=== PATIENT | female | born 1965 | race Caucasian/White ===

== ENCOUNTER 2017-12-12 21:32 | Emergency (ER) | payer OTHER ==
[2017-12-12 21:47] VITALS: BP 170/86
--- NOTE | 2017-12-12 23:31 | ED Physician Documentation ---
PD HPI TRUNK INJURY - Stated complaint Stated Complaint: RIB PX - Chief complaint Chief Complaint: General - History obtained from History obtained from: Patient - History of Present Illness Location: Right chest Type of injury: Crush (her gave a firm hug/squeeze to try to "Crack her back" and they felt a pop in right ribs.) Timing - onset: How many weeks ago (2) Timing - duration: Weeks (2) Timing - details: Abrupt onset, Still present Quality: Pain, Sharp Worsened by: Moving, Palpating, Other (deep breathing) Associated symtptoms: No: Weakness, Numbness Contributing factors: Other ( gave her hug/grabbed around her and tried to "crack her back" to help with stiffness. They felt a pop on right and she has had pain there since. Not improving.) Where injury occured: Home Similar symptoms before: Has not had sx before Recently seen: Not recently seen Review of Systems Constitutional: denies: Fever, Chills, Myalgias Nose: denies: Rhinorrhea / runny nose, Congestion Throat: denies: Sore throat Cardiac: reports: Chest pain / pressure. denies: Palpitations, Pedal edema, Calf pain Respiratory: denies: Dyspnea, Cough, Wheezing GI: denies: Abdominal Pain, Nausea, Vomiting Musculoskeletal: denies: Neck pain, Back pain, Extremity swelling Neurologic: denies: Focal weakness, Numbness, Near syncope PD PAST MEDICAL HISTORY - Past Medical History Cardiovascular: None Respiratory: None Neuro: None Endocrine/Autoimmune: None - Present Medications Home Medications: Ambulatory Orders Medication Instructions Recorded Confirmed Dexamethasone [Decadron] 4 mg PO DAILY #5 tablet 12/13/17 Lidocaine Patch 5% [Lidoderm Patch] 1 each TOP DAILY #10 patch 12/13/17 - Allergies Allergies/Adverse Reactions: Allergies Allergy/AdvReac Type Severity Reaction Status Date / Time No Known Drug Allergies Allergy Verified 12/12/17 21:47 PD ED PE NORMAL - Vitals Vital signs reviewed: Yes - General General: Alert and oriented X 3, Well developed/nourished - HEENT HEENT: Ears normal, Pharynx benign - Cardiac Cardiac: RRR, No murmur, Other (tender right anterolateral ribs without crepitance nor deformity. ) - Respiratory Respiratory: Clear bilaterally - Abdomen Abdomen: Normal bowel sounds, Soft, Non tender, No organomegaly - Back Back: No CVA TTP - Derm Derm: Normal color, Warm and dry Results - Vitals Vitals: Oxygen O2 Source Room air - Rads (name of study) ribs right Radiology: Final report received (possible nondisplaced fracture right 6th rib. ), EMP read contemporaneously (no obvious fractures) PD MEDICAL DECISION MAKING - ED course Complexity details: reviewed results (I did not see rib fracture but talked with the patient about occult rib fractures on plain xray and that it would be treated similarly to bruise/strain. ), considered differential, d/w patient - Sepsis Event Vital Signs: Oxygen O2 Source Room air Departure - Departure Disposition: Home, Self Care Clinical Impression: Right-sided chest pain Chest wall muscle strain Qualifiers: Encounter type: initial encounter Qualified Code(s): S29.011A - Strain of muscle and tendon of front wall of thorax, initial encounter Condition: Stable Record reviewed to determine appropriate education?: Yes Instructions: ED Strain Chest Wall Follow-Up: Nghia Scanlon MD [Primary Care Provider] - Prescriptions: Dexamethasone [Decadron] 4 mg PO DAILY #5 tablet Lidocaine Patch 5% [Lidoderm Patch] 1 each TOP DAILY #10 patch Comments: Continue current pain medications and muscle relaxants. Add dexamethasone steroid anti-inflammatory daily for 5 more days. He can use a lidocaine patch over the painful area to see if that helps with the pain. I do not see any obvious rib fractures and no lung injury on the x-rays. Presume it is a strain of the chest wall muscles and ligaments. There could be a hidden nondisplaced fracture not seen on the x-ray and we know that occurs 3 or 4% of the time. These typically do not need any particular treatment beyond time to heal. Discharge Date/Time: 12/13/17 00:47
--- NOTE | 2017-12-13 00:49 | XRAY Report ---
Procedure Date: 12/13/2017 Accession Number: [id number] / [id number] Procedure: XR - Ribs w/PA Chest RT CPT Code: FULL RESULT: EXAM: RIGHT RIB RADIOGRAPHY EXAM DATE: 12/13/2017 12:29 AM. CLINICAL HISTORY: Right rib pain after hard squeeze/hug. COMPARISON: None. TECHNIQUE: 1 view of the chest and 2 views of the ribs. FINDINGS: Bones: Cortical step-off in the anterior right sixth and seventh ribs. Lungs: No focal opacities. No pneumothorax. No pleural effusions. Mediastinum: Heart and mediastinal contours are unremarkable. Other: None. IMPRESSION: 1. No acute pulmonary process. 2. Possible nondisplaced anterior right sixth and seventh rib fractures. [facility]
== END 2017-12-13 00:47 | disposition home or self-care (01) ==
LOC: ED 21:32
DX: S29.011A Strain of muscle and tendon of front wall of thorax, initial encounter (principal); X58.XXXA Exposure to other specified factors, initial encounter
CPT/HCPCS: 99283